=== PATIENT | female | born 1985 | race Caucasian/White ===

== ENCOUNTER 2022-04-06 07:37 | Day surgery (SDC) | payer OTHER ==
[2022-04-04 10:37] VITALS: BMI 23.6
[2022-04-06] MEDS ORDERED: PROPOFOL 20 ML ONE ×4 (08:33)
[2022-04-06 10:02] VITALS: TEMP 98
[2022-04-06 10:04] VITALS: BP 99/67; PULSE 76
== END 2022-04-06 09:45 | disposition home or self-care (01) ==
LOC: FASU-ENDO 07:37
PROVIDERS: ATTEND Internal Medicine Gastroenterology
PROC: 0DJD8ZZ Inspection of Lower Intestinal Tract, Via Natural or Artificial Opening Endoscopic (ICD-10-PCS; principal; 2022-04-06 08:35)
DX: Z12.11 Encounter for screening for malignant neoplasm of colon (principal); Z80.0 Family history of malignant neoplasm of digestive organs; Z83.71 Family history of colonic polyps
CPT/HCPCS: 84703